=== PATIENT | female | born 1990 | race Caucasian/White ===

== ENCOUNTER → 2017-02-12 | Emergency (ER) | payer SELFPAY ==
[~2017-02-12] VITALS: Ht 165.1 cm; Wt 83.9 kg
[~2017-02-12] MED LIST: LAMICTAL100 MG PO
== END | disposition home or self-care (01) ==
LOC: ED 18:06
DX: G40.909 Epilepsy, unspecified, not intractable, without status epilepticus (principal); Z88.0 Allergy status to penicillin; Z79.899 Other long term (current) drug therapy
CPT/HCPCS: 80053; 81001; 84703; 85025; 99284; G0480